=== PATIENT | male | born 1990 | race Caucasian/White ===

== ENCOUNTER 2021-05-31 09:05 | Emergency (ER) | payer BC, SELFPAY ==
--- NOTE | ~2021-05-31 | XR_ITS ---
EXAMINATION: XR knee LT min 4V EXAM DATE: 05/31/2021 09:29 INDICATION: Diffuse left knee pain s/p dog running into same 2 days ago. TECHNIQUE: Left knee frontal, crosstable lateral, orthogonal oblique projections for interpretation. There is no prior study for comparison. FINDINGS: Suspicion of acute closed posttraumatic nondisplaced left knee lateral tibial plateau fract ure. There is moderate-sized left knee joint effusion or lipohemarthrosis. Some soft tissue swelling. No other acute findings. IMPRESSION: Probable acute nondisplaced left lateral tibial plateau fracture; consider orthopedic co nsult, outpatient CT scan without contrast. Reviewed, dictated and finalized at location A. [employer] IMPRESSION: Probable acute nondisplaced left lateral tibial plateau fracture; consider orthopedic consult, outpatient CT scan without contrast.
--- NOTE | 2021-05-31 09:14 | ED.LOWEXIN ---
HPI - Extremity Injury (Lower) General Chief Complaint: Extremity Injury, Lower Stated Complaint: Left Knee Pain Time Seen by Provider: 05/31/21 09:53 Source: patient and RN notes reviewed Mode of arrival: ambulatory Limitations: no limitations History of Present Illness HPI Narrative: 30-year-old male presents concern for pain. Reports 2 days ago his dog ran into his knee causing him to fall on the concrete floor of his garage. Reports significant knee pain and swelling. Reports he has been using crutches. He reports he has been seeing an orthopedic doctor for possible ACL tear in that knee and has recently gotten a cortisone shot approximately 2 weeks ago in the knee. He denies distal swelling, decreased motion, strength. MD complaint: knee injury Related Data Allergies Allergy/AdvReac Type Severity Reaction Status Date / Time No Known Allergies Allergy Unknown Unverified 05/31/21 09:40 Review of Systems Review of Systems: CONSTITUTIONAL: Denies malaise, chills, sweats, or fever. CARDIOVASCULAR: Denies chest pain, palpitations, or edema. RESPIRATORY: Denies cough or dyspnea. SKIN: Denies rash or itching, bruising, redness MUSCULOSKELETAL: Reports left knee pain and swelling NEUROLOGIC: Denies numbness, weakness All systems reviewed & are unremarkable except as noted in HPI and below PMFSH Family History Family History (Updated 05/15/18 @ 11:56 by DOCTOR UNKNOWN) Grandparent Family history of hypercholesterolemia Family history of cardiovascular disease Family history of type 2 diabetes mellitus Mother Family history of hypercholesterolemia Family history of cardiovascular disease Father Carcinoma of colon Social History Social History Smoking status: Smoker, status unknown Alcohol intake: current Comments At time of signature, agree with nursing past medical, surgical, social and family history. There is no relevant family history pertinent to the presenting complaint Exam Narrative: GENERAL: Well-appearing, well-nourished, and in no acute distress. HEAD: Normocephalic, atraumatic. EYES: PERRLA, conjunctivae clear NECK: Supple. CHEST: Speaks in full sentences. No respiratory distress. HEART: Regular rate and rhythm. Normal and equal peripheral pulses. EXTREMITIES: Left knee has normal sensation, limited range of motion. Mild edema, no ecchymosis. Normal sensation with sensitivity to light touch and pain. Anterior tenderness. No open wounds, no skin tenting, no devitalized tissue or atrophy, no trophic changes, no obvious deformity, alignment normal, nearby joints and structures intact. Distal pulses palpable and equal bilaterally, skin warm, dry, pink. Capillary refill less than 3 seconds. SKIN: Warm, dry, no rash. NEURO: Alert and oriented x3. PSYCH: Normal mood and affect Course Course Emergency Course: Patient is aware of diagnosis, understands and agrees to treatment plan. Anticipatory guidance given. Patient agrees to follow-up as directed and is aware of reasons to seek care at the emergency department. Portions of this record may have been created with voice recognition software Vital Signs Vital signs: Vital Signs Temperature 97.6 F 05/31/21 09:16 Pulse Rate 96 05/31/21 09:16 Respiratory Rate 16 05/31/21 09:16 Blood Pressure 124/80 05/31/21 09:16 Pulse Oximetry 99 05/31/21 09:16 Temperature 97.6 F 05/31/21 09:16 Pulse Rate 96 05/31/21 09:16 Respiratory Rate 16 05/31/21 09:16 Blood Pressure 124/80 05/31/21 09:16 Pulse Oximetry 99 05/31/21 09:16 Reviewed. MDM - Extremity Injury (Lower) MDM Narrative Medical decision making narrative: Patients injury and pain is consistent with musculoskeletal etiology. No signs of neurological or vascular compromise on exam. Compartments and tissues are soft without signs of compartment syndrome. Pain is felt appropriate for further evaluation on an outpatient basis. Imaging Data My impression: Images reviewed, int
[2021-05-31 09:16] VITALS: BP 124/80; PULSE 96; RESP 16; TEMP 36.4; O2SAT 99
== END 2021-05-31 10:11 | disposition home or self-care (01) ==
PROVIDERS: Emergency Provider Nurse Practitioner
DX: S82.142A Displaced bicondylar fracture of left tibia, initial encounter for closed fracture (principal); W54.1XXA Struck by dog, initial encounter; M19.90 Unspecified osteoarthritis, unspecified site
CPT/HCPCS: 73564; 99214; G0463

== ENCOUNTER 2024-08-31 14:43 | Outpatient (CLI) | payer BC, SELFPAY ==
--- NOTE | ~2024-08-31 | XR_ITS ---
AP and oblique views of the right ribs, and PA chest radiograph Clinical History: Pain Findings: No rib fracture is seen. Osseous alignment is anatomic. Lungs are clear, without focal cons olidation or pleural effusion. Cardiomediastinal contour is within normal limits. Soft tissues are un remarkable. Impression: No rib fracture is seen. Clear lungs. Reviewed, dictated and finalized at [facility]. Impression: No rib fracture is seen. Clear lungs.
== END 2024-08-31 14:44 | disposition home or self-care (01) ==
PROVIDERS: PCP Emergency Medicine; Visit Provider Family Medicine
DX: R07.81 Pleurodynia (principal)
CPT/HCPCS: 71101

== ENCOUNTER 2024-10-27 13:32 | Outpatient (CLI) | payer BC, SELFPAY ==
--- NOTE | ~2024-10-27 | US_ITS ---
Abdominal Sonogram: Real-time sonographic imaging of the abdomen was performed. Clinical History: Abdominal pain Findings: The liver appears normal with no evidence of bile duct dilatation. 8mm hyperechoic lesion present in the left hepatic lobe. Main portal vein demonstrates normal direction of flow. The spleen is normal in size without evidence of focal lesion. The gallbladder is well distended, and appears n ormal with no evidence of gallstone or wall thickening. The common bile duct measures 3 mm. The visu alized pancreas, aorta, and IVC are unremarkable. The right kidney measures 10.4 cm in length and th e left kidney measures 11.2 cm. There is no hydronephrosis or renal calculus. Impression: 8mm left hepatic lobe hyperechoic mass, most likely small hemangioma. Consider follow-up exam or MR t o attempt to further characterize. Reviewed, dictated and finalized at [facility]. Impression: 8mm left hepatic lobe hyperechoic mass, most likely small hemangioma. Consider follow-up exam or MR to attempt to further characterize.
--- NOTE | ~2024-10-27 | XR_ITS ---
XR abdomen/kub 1V 10/27/2024 13:46 INDICATION: Right lower quadrant pain TECHNIQUE: KUB COMPARISON: None FINDINGS: Bowel gas pattern is normal. There is no evidence of free air, mass, organomegaly, ascites or obstruction. No abnormal calculi are seen. There are pelvic phleboliths. The bones appear intact . IMPRESSION: 1: No acute abdominal abnormality identified. Reviewed, dictated and finalized at location A.
--- NOTE | ~2024-10-27 | XR_ITS ---
AP view of the pelvis Clinical history: Pain Findings: No acute fracture or dislocation is seen. Osseous alignment is anatomic. Bilateral hip and SI joint spaces are preserved. Soft tissues are unremarkable. Impression: No significant abnormality is seen. Reviewed, dictated and finalized at location M. Impression: No significant abnormality is seen.
== END 2024-10-27 13:33 | disposition home or self-care (01) ==
PROVIDERS: PCP Family Medicine; Visit Provider Family Medicine
DX: R10.31 Right lower quadrant pain (principal)
CPT/HCPCS: 72170; 74018; 76700

== ENCOUNTER 2024-12-26 08:15 | Outpatient (CLI) | payer BC, SELFPAY ==
--- NOTE | ~2024-12-26 | MR_ITS ---
MRI of the abdomen: Clinical indication: Liver lesion. Technique: Coronal SSFSE ARC, WATER:coronal LAVA-FLEX, Coronal 2D FIESTA FatSat, Axial SSFSE BH ARC, Axial 3D DualEcho BH, Axial SSFSE-IR, Axial DWI b=500, Axial 2D FIESTA FatSat, pre and dynamic postco ntrast Axial LAVA ARC, postcontrast Coronal In and Opposed phase LAVA FLEX. Following intravenous adm inistration of 13 cc MultiHance gadolinium, T1-weighted fat-sat imaging was performed in the axial an d coronal planes. Findings: Gallbladder is unremarkable. The common bile duct is normal in course and caliber. No filli ng defects are seen within the CBD. No evidence of intrahepatic biliary ductal dilatation. The pancre atic duct is normal in size. There is a 7 mm T2 hyperintense lesion in the inferior left hepatic lobe with progressive fill in/enh ancement over time, most compatible with small hemangioma. Spleen, pancreas, adrenals, kidneys appear normal. The aorta and the paraaortic regions appear normal . Impression: 7 mm left hepatic lobe lesion is most consistent with small hemangioma. Reviewed, dictated and finalized at location . Impression: 7 mm left hepatic lobe lesion is most consistent with small hemangioma.
--- OUTSIDE RECORDS SUMMARY | 2024-12-26 08:21 | XMS_ITS | Data Portability ---
Author Organization [place] [facility], Main Office Address [address] [place] [address] Care Team Providers Care Surveying Crew Rodman Name Role Phone HAYDEN HUGHES Primary Care Provider Assessment Encounter Date Assessment Date Assessment LastModified by Organization Details LastModified Time 09/07/2024 09/07/2024 33 yo M with - WELL ADULT VISIT - BLOOD IN STOOL - HEMORRHOIDS - FH OF COLON CANCER - SMOKER X-ray Rt ribs with chest: 08/31/24. D/w pt about his findings, recent labs & imagines and further plan of care. Will do routine labs. Will refer pt to GI. Meds as directed. Good liquid and fiber intake explained. Diet and exercise explained. Safe sex education given. F/u with GI as per schedule. HM: Flu - Pt declined. Tdap - 09/07/24. Gardasil - Pt declined. F/u in 2-3 weeks. Annual labs in 09/25. [email or web address] Not available 09/07/2024 17:09:15 09/30/2024 09/30/2024 34 yo M with - RLQ PAIN, chronic - ? GERD Vs IBS - VIT D DEFICIENCY - BLOOD IN STOOL - HEMORRHOIDS - FH OF COLON CANCER - SMOKER Annual labs: 09/07/24. X-ray Rt ribs with chest: 08/31/24. D/w pt about his findings, recent labs & imagines and further plan of care. Explained about different options for him. Will do x-ray and US. Meds as directed. Good liquid and fiber intake explained. Diet and exercise explained. Safe sex education given. F/u with GI as per schedule. F/u with Ophtho as per schedule. Educated pt about alarming symptoms to monitor at home. HM: Flu - Pt declined. Tdap - 09/07/24. Gardasil - Pt declined. F/u in 2-4 weeks. Annual labs in 09/25. Not available 09/30/2024 17:12:08 10/21/2024 10/21/2024 34 yo M with - RLQ PAIN, chronic - ? GERD Vs IBS - VIT D DEFICIENCY - BLOOD IN STOOL - HEMORRHOIDS - FH OF COLON CANCER & IBS - SMOKER Annual labs: 09/07/24. X-ray Rt ribs with chest: 08/31/24. D/w pt about his findings, recent labs & imagines and further plan of care. Explained about different options for him. Advised to find out about other GI doctor if he wants to see and call us with their info. Meds as directed. Good liquid and fiber intake explained. Diet and exercise explained. Safe sex education given. F/u with GI as per schedule. F/u with Ophtho as per schedule. Educated pt about alarming symptoms to monitor at home. HM: Flu - Pt declined. Tdap - 09/07/24. Gardasil - Pt declined. F/u in 4 weeks. Annual labs in 09/25. Not available 10/21/2024 16:03:54 11/10/2024 11/10/2024 34 yo M with - LT LIVER LOBE MASS (8 mm) - RLQ PAIN, chronic - ? GERD Vs IBS - VIT D DEFICIENCY - BLOOD IN STOOL - HEMORRHOIDS - FH OF COLON CANCER & IBS - SMOKER US abdo: 10/27/24. X-ray abdo & pelvis: 10/27/24. Annual labs: 09/07/24. X-ray Rt ribs with chest: 08/31/24. D/w pt about his findings, recent labs & imagines and further plan of care. Staff to get US result. Explained about different options for him. Meds as directed. Good liquid and fiber intake explained. Diet and exercise explained. Safe sex education given. F/u with GI at [facility] as per schedule. F/u with Ophtho as per schedule. Educated pt about alarming symptoms to monitor at home. HM: Flu - Pt declined. Tdap - 09/07/24. Gardasil - Pt declined. F/u in 3-4 months. Annual labs in 09/25. US liver in 10/25. [email or web address] Not available 11/10/2024 16:08:46 Plan of Treatment Reminders Order Date Submit Date Provider Last Modified By Organization Details Last Modified Time Details Appointments Procedure 60 2024 08:00A Avril Foote MD Not available Not available Not available Follow Up 15 2024 03:45P Avril Hughes MD Not available Not available Not available Any 2024 02:45P Avril Foote MD Not available Not available Not available Lab vitamin D, 25-hydrox y, total, serum [address] (Lab), [address] [place], [address], 09/14/2024 16:09:58 HbA1c (hemoglob in A1c), blood [address] (Lab), [address] [place], [address], 09/14/2024 16:09:58 CMP, serum or plasma [address] (Lab), [address] [place], [address], 09/07/2024 17:36:38 CBC w/ auto diff 2024 025 SIMRAN [facility] (Lab), [address] [place], [address], 09/08/2024 14:05:33 lipid panel, blood [address] (Lab), [address] [place], [address], 09/16/2024 11:10:18 TSH, serum, reflex free T4 [address] (Lab), [address] [place], [address], 09/14/2024 16:09:58 PSA, serum or plasma [address] (Lab), [address] [place], [address], 09/14/2024 16:09:58 urinalysi s complete, reflex culture [address] (Lab), [address] [place], [address], 09/07/2024 17:37:51 Referral gastroent erologist referral - Blood in stool, FH of colon cancer ++ Please call patient to schedule an appointme nt. Thank you. 2024 025 SIMRAN Foote MD, [address] [facility], [address], [place], [address], 11/29/2024 14:30:36 Procedures upper endoscopy procedure (EGD) (PROC) [address] (Pre-Screen), [address] [place], [address], 12/02/2024 09:19:56 colonosco py procedure (PROC) 2024 025 [facility] (Pre-Screen), [address] [place], [address], 12/23/2024 04:18:41 Surgeries None recorded. Imaging MRI, abdomen, w/wo contrast 2024 025 [facility], [facility] [address], [address], 12/18/2024 04:06:29 XR, abdomen + pelvis 2024 025 [facility], [facility] [address], [address], 10/28/2024 09:34:18 US, abdomen, complete 2024 [facility], [address], [place], [address], 10/28/2024 11:08:07 Medication Orders ergocalci ferol (vitamin D2) 1,250 mcg (50,000 unit) capsule 2024 [facility], [address], [place], [place], [id number], 11/10/2024 15:14:56 pantopraz ole 40 mg tablet,de layed release 2024 [facility], [address], [place], [place], [id number], 11/10/2024 15:14:57 varenicli ne tartrate 1 mg tablet 2024 [facility], [address], [place], [place], [id number], 11/10/2024 15:14:55 ergocalci ferol (vitamin D2) 1,250 mcg (50,000 unit) capsule 2024 025 [facility], [address], [place], [place], [id number], 10/21/2024 15:49:22 pantopraz ole 40 mg tablet,de layed release 2024 [facility], [address], [place], [place], [id number], 10/21/2024 15:51:32 varenicli ne tartrate 0.5 mg (11)-1 mg (42) tablets in a dose pack 2024 [facility], [address], [place], [place], [id number], 10/21/2024 15:51:28 ergocalci ferol (vitamin D2) 1,250 mcg (50,000 unit) capsule 2024 025 [facility]65747, [address], [place], [place], [id number], 09/30/2024 17:01:05 famotidin e 20 mg tablet 2024 025 [facility] #63959, [address], [place], [place], [id number], 09/30/2024 17:04:03 Patient TargetsNo targets recorded. Patient Instructions Encounter Date Encounter Id Patient Instructions Last Modified By Organization Details Last Modified Time 11/25/2024 [id number] I discussed with the patient detail advised the patient that he can try MiraLax every day to have 1 or 2 bowel movements possibility of constipation as a culprit for his abdominal pains as well as rectal bleeding secondary to hemorrhoids have been discussed. We will advise patient to proceed with a colonoscopy for evaluation because of the family history of inflammatory bowel disease, family history of colon cancer. Necessity of ruling out colon cancer has been discussed in detail with the patient. I will also proceed with the upper endoscopy to rule out any hiatal hernia or Piper's esophagus. Patient agrees to get both tests done. Regarding the liver lesion noted on the ultrasound we will order the MRI unfortunately we do not have the MRI variability at this point at the hospital we will send the patient to the closest hospital to get the MRI done for the lesion noted on the ultrasound. Follow with us in 4 months Not available 11/25/2024 14:58:23 Reason for Referral Personnel Training Officer Referral for Blood-tinged feces Blood in stool, FH of colon cancer ++ Blood in stool, FH of colon cancer ++ Please call patient to schedule an appointment. Thank you. Referring Physician: Hayden Hughes, Family Medicine, Encounter Date: 09/07/2024 Results Created Date Observation Date Name Description Value Unit Range Abnormal Flag Note LastModifiedBy Organization Detail LastModifiedTime 09/08/1909/08/2024 CBC/C OMPLE TE BLD COUNT W/DIF F white blood cells 7.7 x10'3 /uL 4.2-10 .8 Not Available [facility] (Lab) [address] [place], [address], 09/08/2024 14:05:33 09/08/19 25 09/08/2024 CBC/C OMPLE TE BLD COUNT W/DIF F red blood cells 4.64 x10'6 /uL 4.10-5 .80 Not Available [facility] (Lab) [address] [facility] [place], [address], 09/08/2024 14:05:33 09/08/19 25 09/08/2024 CBC/C OMPLE TE BLD COUNT W/DIF F hemoglobin 15.0 g/dL 13.2-1 7.0 Not Available [facility] (Lab) [address] [place], [address], 09/08/2024 14:05:33 09/08/19 25 09/08/2024 CBC/C OMPLE TE BLD COUNT W/DIF F hematocrit 43.9 % 39.3-5 0.0 Not Available [facility] (Lab) [address] [place], [address], 09/08/2024 14:05:33 09/08/1909/08/2024 CBC/C OMPLE TE BLD COUNT W/DIF F mean red cell volume 94.6 fL 80.0-9 7.0 Not Available [facility] (Lab) [address] [place], [address], 09/08/2024 14:05:33 09/08/19 25 09/08/2024 CBC/C OMPLE TE BLD COUNT W/DIF F mean red cell hemoglobin 32.3 pg 27.0-3 3.0 Not Available [facility] (Lab) [address] [place], [address], 09/08/2024 14:05:33 09/08/19 25 09/08/2024 CBC/C OMPLE TE BLD COUNT W/DIF F mean RBC HGB concentratio n 34.2 g/dL 31.0-3 6.0 Not Available [facility] (Lab) [address] [place], [address], 09/08/2024 14:05:33 09/08/19 25 09/08/2024 CBC/C OMPLE TE BLD COUNT W/DIF F red cell distribution width 12.1 % 11.8-1 5.5 Not Available [facility] (Lab) [address] [place], [address], 09/08/2024 14:05:33 09/08/19 25 09/08/2024 CBC/C OMPLE TE BLD COUNT W/DIF F platelets 254 x10'3 /uL 150-40 0 Not Available [facility] (Lab) [address] [place], [address], 09/08/2024 14:05:33 09/08/1909/08/2024 CBC/C OMPLE TE BLD COUNT W/DIF F mean platelet volume 11.0 fL 9.0-12 .4 Not Available [facility] (Lab) [address] [place], [address], 09/08/2024 14:05:33 09/08/19 25 09/08/2024 CBC/C OMPLE TE BLD COUNT W/DIF F neutrophils 56.2 % 39.0-7 2.0 Not Available [facility] (Lab) [address] [place], [address], 09/08/2024 14:05:33 09/08/19 25 09/08/2024 CBC/C OMPLE TE BLD COUNT W/DIF F lymphocytes 31.4 % 16.0-4 7.0 Not Available [facility] (Lab) [address] [place], [address], 09/08/2024 14:05:33 09/08/1909/08/2024 CBC/C OMPLE TE BLD COUNT W/DIF F monocytes 10.3 % 5.0-12 .0 Not Available [facility] (Lab) [address] [place], [address], 09/08/2024 14:05:33 09/08/1909/08/2024 CBC/C OMPLE TE BLD COUNT W/DIF F eosinophils 1.3 % 1.0-7. 0 Not Available [facility] (Lab) [address] [place], [address], 09/08/2024 14:05:33 09/08/1909/08/2024 CBC/C OMPLE TE BLD COUNT W/DIF F basophils 0.5 % 0.0-2. 0 Not Available [facility] (Lab) [address] [place], [address], 09/08/2024 14:05:33 09/08/1909/08/2024 CBC/C OMPLE TE BLD COUNT W/DIF F immature granulocytes 0.3 % 0.00-0 .50 Not Available [facility] (Lab) [address] [place], [address], 09/08/2024 14:05:33 09/08/1909/08/2024 CBC/C OMPLE TE BLD COUNT W/DIF F neutrophils, absolute count 4.34 x10'3 /uL 1.5-8. 0 Not Available [facility] (Lab) [address] [place], [address], 09/08/2024 14:05:33 09/08/19 25 09/08/2024 CBC/C OMPLE TE BLD COUNT W/DIF F lymphocytes, absolute count 2.43 x10'3 /uL 1.07-3 .43 Not Available [facility] (Lab) [address] [place], [address], 09/08/2024 14:05:33 09/08/1909/08/2024 CBC/C OMPLE TE BLD COUNT W/DIF F monocytes, absolute count 0.80 x10'3 /uL 0.29-0 .99 Not Available [facility] (Lab) [address] [place], [address], 09/08/2024 14:05:33 09/08/19 25 09/08/2024 CBC/C OMPLE TE BLD COUNT W/DIF F eosinophils, absolute count 0.10 x10'3 /uL 0.02-0 .53 Not Available [facility] (Lab) [address] [place], [address], 09/08/2024 14:05:33 09/08/1909/08/2024 CBC/C OMPLE TE BLD COUNT W/DIF F basophils, absolute count 0.04 x10'3 /uL 0.01-0 .08 Not Available [facility] (Lab) [address] [place], [address], 09/08/2024 14:05:33 09/08/1909/08/2024 CBC/C OMPLE TE BLD COUNT W/DIF F immature granulocytes ,absolute 0.02 x10'3 /uL 0.00-0 .05 Not Available [facility] (Lab) [address] [place], [address], 09/08/2024 14:05:33 09/08/19 25 09/08/2024 CBC/C OMPLE TE BLD COUNT W/DIF F nucleated red blood cells 0.0 % -0 Not Available [facility] (Lab) [address] [place], [address], 09/08/2024 14:05:33 04/08/20 25 09/08/2024 CBC/C OMPLE TE BLD COUNT W/DIF F NRBC# 0.00 x10'3 /uL Not Available [facility] (Lab) [address] [place], [address], 09/08/2024 14:05:33 09/08/19 25 09/08/2024 COMPR EHENS KM METAB OLIC PANEL sodium 137 mmol/ L 137-14 5 Not Available [facility] (Lab) [address] [place], [address], 09/08/2024 14:21:02 09/08/19 25 09/08/2024 COMPR EHENS KM METAB OLIC PANEL potassium 3.9 mmol/ L 3.5-5. 1 Not Available [facility] (Lab) [address] [place], [address], 09/08/2024 14:21:02 09/08/19 25 09/08/2024 COMPR EHENS KM METAB OLIC PANEL chloride 106 mmol/ L 98-107 Not Available [facility] (Lab) [address] [place], [address], 09/08/2024 14:21:02 09/08/19 25 09/08/2024 COMPR EHENS KM METAB OLIC PANEL carbon dioxide 23 mmol/ L 22-30 Not Available [facility] (Lab) [address] [place], [address], 09/08/2024 14:21:02 09/08/19 25 09/08/2024 COMPR EHENS KM METAB OLIC PANEL anion gap 11.9 mmol/ L 14-22 low Not Available [facility] (Lab) [address] [place], [address], 09/08/2024 14:21:02 09/08/19 25 09/08/2024 COMPR EHENS KM METAB OLIC PANEL glucose 83 mg/dL 70-99 Not Available [facility] (Lab) [address] [place], [address], 09/08/2024 14:21:02 09/08/19 25 09/08/2024 COMPR EHENS KM METAB OLIC PANEL BUN 8 mg/dL 8-19 Not Available [facility] (Lab) [address] [place], [address], 09/08/2024 14:21:02 09/08/19 25 09/08/2024 COMPR EHENS KM METAB OLIC PANEL creatinine 0.82 mg/dL 0.66-1 .25 Not Available [facility] (Lab) [address], [place], [address], 09/08/2024 14:21:02 09/08/19 25 09/08/2024 COMPR EHENS KM METAB OLIC PANEL GFR >60 Refer ence Range : [place] ge GFR Healt hy Adult : >60 mL/mi n/1.7 3 m2 Chron ic Kidne y Disea se: 15-60 mL/mi n/1.7 3 m2 Kidne y Failu re: <15/m L/min /1.73 m2 www.n iddk. nih.g ov The MDRD study equat ion has not been valid ated in child waleska <18 years of age; pregn ant women ; the elder ly >85 years of age; or in some racia l or ethni c subgr oups, such as [facility] nics. Outsi de the valid ated kalee eters , estim ated GFR is less accur ate, requi ring clini louis judgm ent on a case- by-ca se basis . Clini louis inter preta tion for other races and ages must be made by the clini juan. The MDRD study equat ion has not been valid ated for the evalu ation of serum creat inine relat ed to nutri angel l statu s or medic ation usage . For perso ns <18 years of age, a pedia tric GFR calcu lator is avail able on the [facility] websi te: https ://kasandra w.ronnie laguna.o rg/pr ofess ional s/kdo qi/gf r_cal culat or Not Available [facility] (Lab) [address] [place], [address], 09/08/2024 14:21:02 09/08/19 25 09/08/2024 COMPR EHENS KM METAB OLIC PANEL alkaline phosphatase 81 U/L 38-126 Not Available [facility] (Lab) [address] [place], [address], 09/08/2024 14:21:02 09/08/19 25 09/08/2024 COMPR EHENS KM METAB OLIC PANEL alanine aminotransfe rase 23 U/L 0-50 Not Available [facility] (Lab) [address] [place], [address], 09/08/2024 14:21:02 09/08/19 25 09/08/2024 COMPR EHENS KM METAB OLIC PANEL aspartate aminotransfe rase 25 U/L 15-46 Not Available [facility] (Lab) [address] [place], [address], 09/08/2024 14:21:02 09/08/19 25 09/08/2024 COMPR EHENS KM METAB OLIC PANEL bilirubin, total 0.90 mg/dL 0.20-1 .30 Not Available [facility] (Lab) [address] [place], [address], 09/08/2024 14:21:02 09/08/1909/08/2024 COMPR EHENS KM METAB OLIC PANEL calcium 9.7 mg/dL 8.4-10 .2 Not Available [facility] (Lab) [address] [place], [address], 09/08/2024 14:21:02 09/08/19 25 09/08/2024 COMPR EHENS KM METAB OLIC PANEL total protein 7.4 g/dL 6.3-8. 2 Not Available [facility] (Lab) [address] [place], [address], 09/08/2024 14:21:02 09/08/19 25 09/08/2024 COMPR EHENS KM METAB OLIC PANEL albumin 4.8 g/dL 3.4-5. 0 Not Available [facility] (Lab) [address] [place], [address], 09/08/2024 14:21:02 09/08/19 25 09/08/2024 COMPR EHENS KM METAB OLIC PANEL globulin 2.6 g/dL 2.6-4. 2 Not Available [facility] (Lab) [address] [place], [address], 09/08/2024 14:21:02 09/08/19 25 09/08/2024 COMPR EHENS KM METAB OLIC PANEL A/G ratio 1.8 ratio 1.0-2. 0 Not Available [facility] (Lab) [address] [place], [address], 09/08/2024 14:21:09/08/1909/08/2024 LIPID PANEL cholesterol 176 mg/dL 140-19 9 NIH KAREN NSUS RECOM MENDA TION FOR BRENDAN STERO L: ADULT CHILD LOW RISK: <200 <170 BORDE RLINE : <200- 239 ----- HIGH RISK: >240 >200 Not Available [facility] (Lab) [address] [place], [address], 09/08/2024 14:21:06 09/08/1909/08/2024 LIPID PANEL triglyceride s 57 mg/dL 0-150 NIH KAREN NSUS REPOR T RECOM MENDA TION FOR TRIGL YCERI BRENTON: ADULT CHILD LOW RISK: <150 ----- BODER LINE: 150-1 99 ----- HIGH RISK: >200 ----- Not Available [facility] (Lab) [address] [place], [address], 09/08/2024 14:21:06 09/08/19 25 09/08/2024 LIPID PANEL HDL cholesterol 42 mg/dL 40- Not Available [facility] (Lab) [address] [place], [address], 09/08/2024 14:21:06 09/08/19 25 09/08/2024 LIPID PANEL LDL cholesterol, calculated 123 mg/dL 0-130 NIH KAREN NSUS REPOR T RECOM MENDA TIONS FOR LDL: ADULT CHILD LOW RISK <130 <110 (OPTI MAL LDL) <100 ----- BORDE RLINE : 130-1 59 ----- HIGH RISK: >160 >130 A TRIGL YCERI DE RESUL T >400 INVAL IDATE S THE CALCU LATIO N FOR LDL FRACT IONAT ION - THE LDL RESUL T WILL NOT BE REPOR THERON. Not Available [facility] (Lab) [address] [place], [address], 09/08/2024 14:21:06 09/08/19 25 09/08/2024 URINA LYSIS COMPL ETE/I RIS W/RFX color YELLOW Not Available [facility] (Lab) [address] [place], [address], 09/08/2024 14:24:43 09/08/19 25 09/08/2024 URINA LYSIS COMPL ETE/I RIS W/RFX appear CLEAR Not Available [facility] (Lab) [address] [place], [address], 09/08/2024 14:24:43 09/08/19 25 09/08/2024 URINA LYSIS COMPL ETE/I RIS W/RFX specific gravity 1.026 1.001- 1.030 Not Available [facility] (Lab) [address] [place], [address], 09/08/2024 14:24:43 09/08/19 25 09/08/2024 URINA LYSIS COMPL ETE/I RIS W/RFX pH 7.0 pH_un its 5.0-9. 0 Not Available [facility] (Lab) [address] [place], [address], 09/08/2024 14:24:43 09/08/19 25 09/08/2024 URINA LYSIS COMPL ETE/I RIS W/RFX leukocytes NEGATI VE zhang/u L negati ve- Not Available [facility] (Lab) [address] [place], [address], 09/08/2024 14:24:43 09/08/19 25 09/08/2024 URINA LYSIS COMPL ETE/I RIS W/RFX nitrite NEGATI VE negati ve- Not Available [facility] (Lab) [address] [place], [address], 09/08/2024 14:24:43 09/08/19 25 09/08/2024 URINA LYSIS COMPL ETE/I RIS W/RFX protein 10 mg/dL negati ve- abnormal Not Available [facility] (Lab) [address] [place], [address], 09/08/2024 14:24:43 09/08/19 25 09/08/2024 URINA LYSIS COMPL ETE/I RIS W/RFX glucose NORMAL mg/dL normal - Not Available [facility] (Lab) [address] [place], [address], 09/08/2024 14:24:43 09/08/19 25 09/08/2024 URINA LYSIS COMPL ETE/I RIS W/RFX ketones NEGATI VE mg/dL negati ve- Not Available [facility] (Lab) [address] [place], [address], 09/08/2024 14:24:43 09/08/19 25 09/08/2024 URINA LYSIS COMPL ETE/I RIS W/RFX urobilinogen NORMAL mg/dL normal - Not Available [facility] (Lab) [address] [place], [address], 09/08/2024 14:24:43 09/08/19 25 09/08/2024 URINA LYSIS COMPL ETE/I RIS W/RFX bilirubin NEGATI VE mg/dL negati ve- Not Available [facility] (Lab) [address] [place], [address], 09/08/2024 14:24:43 09/08/19 25 09/08/2024 URINA LYSIS COMPL ETE/I RIS W/RFX blood NEGATI VE mg/dL negati ve- Not Available [facility] (Lab) [address] [place], [address], 09/08/2024 14:24:43 09/08/19 25 09/08/2024 URINA LYSIS COMPL ETE/I RIS W/RFX white blood cells 0-8 /i??h pfi?? 0-8 Not Available [facility] (Lab) [address] [place], [address], 09/08/2024 14:24:43 09/08/19 25 09/08/2024 URINA LYSIS COMPL ETE/I RIS W/RFX red blood cells 0-4 /i??h pfi?? 0-4 Not Available [facility] (Lab) [address] [place], [address], 09/08/2024 14:24:43 09/08/19 25 09/08/2024 URINA LYSIS COMPL ETE/I RIS W/RFX bacteria NONE Not Available [facility] (Lab) [address] [place], [address], 09/08/2024 14:24:43 09/08/19 25 09/08/2024 URINA LYSIS COMPL ETE/I RIS W/RFX mucous MANY /i??l pfi?? abnormal Not Available [facility] (Lab) [address] [place], [address], 09/08/2024 14:24:43 09/08/19 25 09/08/2024 URINA LYSIS COMPL ETE/I RIS W/RFX squamous epithelial NONE /i??l pfi?? abnormal Not Available [facility] (Lab) [address] [place], [address], 09/08/2024 14:24:43 09/08/19 25 09/08/2024 HEMOG LOBIN A1C HA1C 4.9 % 4.0-6. 0 Diabe sofia Scree nabila Crite matilde: <5.7% Consi stent with absen ce of diabe sofia 5.7-6 .4% Consi stent with incre ased risk for diabe sofia (pred iabet es) >OR=6 .5% Consi stent with diabe sofia REFER ENCE: Diabe sofia Care 2016, 39(Hull ppl.1 ):s13 -s22 Not Available [facility] (Lab) [address] [place], [address], 09/08/2024 14:38:34 09/08/19 25 09/08/2024 VITAM IN D 25-HY DROXY vd25oh 16.8 NG/mL 30-100 low Vitam in D Statu s: Defic ient: <20 ng/mL Insuf ficie nt: 20-29 ng/mL Suffi cient : 30-10 0 ng/mL Not Available [facility] (Lab) [address] [place], [address], 09/08/2024 14:42:46 09/08/19 25 09/08/2024 TSH W/REF MARICRUZ FT4 TSH with reflex free T4 2.540 uIU/m L 0.465- 4.680 Not Available [facility] (Lab) [address] [place], [address], 09/08/2024 14:58:40 09/08/19 25 09/08/2024 PSA SCREE N PSA medicare screen 0.73 NG/mL 0.00-4 .00 Not Available [facility] (Lab) [address], [place], [address], 09/08/2024 14:58:46 09/02/1908/31/2024 XR, ribs, unila teral , w/ PA chest No observ ation record ed. [address], [place], [address], 09/07/2024 16:55:23 10/28/19 25 10/27/2024 XR, abdom en + pelvi s No observ ation record ed. [address], [place], [address], 11/10/2024 15:15:58 10/29/19 25 10/27/2024 XR, abdom en + pelvi s No observ ation record ed. [address] [facility], [place], [address], 11/10/2024 15:15:44 11/11/19 25 10/27/2024 US, abdom en, compl ete No observ ation record ed. [email or web address] [address] [facility], [place], [address], 12/02/2024 11:40:56 Result Notes None recorded. Problems Name Problem SNOMED Code Status Onset Date Resolution Date Notes Provider Name and Address Organization Details Recorded Time Hemorrhoids 78224301 Active 2024 Hayden Hughes MD [address], [place], [address], [place] [employer] 17:18:58 Rib pain 206123671 Active 2024 Hayden Hughes MD [address], [place], [address], [facility] [employer] 5 17:21:06 Cigarette smoker 57326639 Active 2024 Hayden Hughes MD [address], [place], [address], [place] [facility] 5 17:24:38 Blood-tinge d feces 5350963489952 02 Active 2024 Hayden Hughes MD [address], [place], [address], [place] [facility] 5 16:58:57 Family history of cancer of colon 358719667 Active 2024 Hayden Hughes MD [address], [address], [place], [address], [place] [facility] 5 17:09:43 Vitamin D deficiency 81443701 Active 2024 Hayden Hughes MD [address], [address], [place], [address], [place] [facility] 5 14:53:21 Periumbilic al pain 172057076 Active 2024 Hayden Hughes MD [address], [address], [place], [address], [place] [facility] 5 17:01:36 Right lower quadrant pain 953561536 Active 2024 Hayden Hughes MD [address], [address], [place], [address], [employer] [facility] 5 17:02:04 Gastroesoph ageal reflux disease without esophagitis 267139023 Active 2024 Antonette Foote MD [address], [address], [place], [address], [place] [facility] 5 14:56:15 Lesion of liver 277795195 Active 2024 Antonette Foote MD [address], [address], [place], [address], [place] [facility] 5 14:55:33 Rectal hemorrhage 57289788 Active 2024 Antonette Foote MD [address], [place], [address], [facility] 14:55:38 Moderate gastric reflux 780339050 Active 2024 Antonette Foote MD [address] [facility], [facility] [address], [place], [address], [facility] 14:55:47 Right upper quadrant pain 685345575 Active 2024 Antonette Foote MD [address] [facility], [facility] [address], [place], [address], [facility] 14:55:59 Problem Notes Documentation Provider Name and Address Organization Details Recorded Time Personnel Training Officer Consult Note : [facility] [address] [facility] [address], [facility] [address]XFIWCNR, Michael (id #[id number], : 1990) [facility] [address] [facility] [address] [place] [address] Encounter Summary - Progress Note Date Printed: 11/29/2024 Documents sent via fax will include the followingmessage: This fax may contain sensitive and confidential personal health information that is being sent for the sole use of the intended recipient. Unintended recipients are directed to securely destroy any materials received. You are hereby notified that the unauthorized disclosure or other unlawful use of this fax or any personal health information is prohibited. To the extent patient information contained in this fax is subject to 42 CFR Part 2, this regulation prohibits unauthorized disclosure of these records. If you received this fax in error, please visit [email or web address] to notify the sender and confirm that the information will be destroyed. If you do not have internet access, please call to notify the sender and confirm that the information will be destroyed. Thank you for your attention and cooperation. [ID:[id number]] Patient Carlin Casarez (34yo, M) #[id number] 1990 Patient Demographics: Address [address] [place] [address] Work Phone Encounter Notes: Encounter Reason/Date blood in stool 11/25/2024 - 02:00PM - [facility] General Surgery History of Present Illnesspatient is seen 1st time in the office patient is here because of rectal bleeding according to him he has problem with the hemorrhoids for a long time but recently in June he started having more rectal bleeding according to him his grandmother had colon cancer denies any previous colonoscopies also according to him ulcerative colitis and Crohn's runs in the family. Patient also complains of some lower abdominal discomfort off and on but it gets better once he has a bowel movement. Also complains of acid reflux according to him he started the pantoprazole and is feeling better denies any dysphagia denies any previous upper endoscopies. Patient did have an ultrasound done in the hospital which showed 8 mm focus in the liver which was concerning for possible hemangioma an MRI was recommended patient has not gone for the MRI yet. Review of Systems Patient reports no fever and no night sweats. He reports no chest pain, no palpitations, and no known heart murmur. He reports no excessive bleeding. He reports not currently and not currently nursing. He reports no runny nose, no sinus pressure, no itching, no hives, and no frequent sneezing. He reports no history of Accutane (isotretinoin) use in the last 6 months. He reports not currently smoking. He reports no abdominal pain, no vomiting, normal appetite, no diarrhea, not vomiting blood, no dyspepsia, and no GERD. [id number] 13:42 Ht: 5 ft 7 in (170.18 cm) Wt: 146 lbs (66.22 kg) BMI: 22.9 BP: 122/72 Pulse: 82 bpm O2Sat: 99% Results/Interpretations Physical ExamConstitutional:General Appearance: healthy-appearing, well-nourished, and well-developed. Level of Distress: NAD. Ambulation: ambulating normally. Psychiatric:Insight: good judgement. Mental Status: normal mood and affect and active and alert. Orientation: to time, place, and person. Memory: recent memory normal and remote memory normal. Head:Head: normocephalic and atraumatic. Eyes:Lids and Conjunctivae: no discharge or pallor and non-injected. Pupils: PERRLA. Corneas: grossly intact. Fundoscopic: normal vessels and optic discs, no exudates or hemorrhages, and grossly normal except where noted. EOM: EOMI. Lens: clear. Sclerae: non-icteric. Vision: peripheral vision grossly intact and acuity grossly intact. ENMT:Ears: no lesions on external ear, EACs clear, TMs clear, and TM mobility normal. Hearing: no hearing loss and Rinne AC>BC. Nose: no polyp, lesions on external nose, septal deviation, sinus tenderness, or nasal discharge and nares patent and nasal passages clear. Lips, Teeth, and Gums: no mouth or lip ulcers or bleeding gums and normal dentition. Oropharynx: no erythema or exudates and moist mucous membranes and tonsils not enlarged. Neck:Neck: supple, FROM, trachea midline, and no masses. Lymph Nodes: no cervical LAD, supraclavicular LAD, axillary LAD, or inguinal LAD. Thyroid: no enlargement or nodules and non-tender. Lungs:Respiratory effort: no dyspnea. Percussion: no dullness, flatness, or hyperresonance. Auscultation: no wheezing, rales/crackles, or rhonchi and breath sounds normal, good air movement, and CTA except as noted. Chest Deformity no pectus carinatum or excavatum; no thoracic deformity, left sternal bulge, or barrel chest; and normal-spaced nipples. Cardiovascular:Apical Impulse: not displaced. Heart Auscultation: normal S1 and S2; no murmurs, rubs, or gallops; and RRR. Neck vessels: no carotid bruits. Pulses including femoral / pedal: normal throughout. Abdomen:Bowel Sounds: normal. Inspection and Palpation: no tenderness, guarding, masses, rebound tenderness, or CVA tenderness and soft and non-distended. Liver: non-tender and no hepatomegaly. Spleen: non-tender and no splenomegaly. Hernia: none palpable. Male :Penis: no lesions or discharge. Scrotum: no swelling or tenderness. Testes: palpable bilaterally and not enlarged. Rectal:Anus, Perineum, Rectum: no hemorrhoids, fissures, or masses and normal tone and stool heme negative. Prostate non-tender, not enlarged, and smooth / no nodules. Musculoskeletal::Motor Strength and Tone: normal and normal tone. Joints, Bones, and Muscles: no contractures, malalignment, tenderness, or bony abnormalities and normal movement of all extremities. Extremities: no cyanosis, edema, varicosities, or palpable cord. Neurologic:Gait and Station: normal gait and station. Cranial Nerves: grossly intact. Sensation: grossly intact. Reflexes: DTRs 2+ bilaterally throughout. Coordination and Cerebellum: [id number]-[id number] intact and no tremor. Motor Strength normal right, left, right facial, and left facial. Skin:Inspection and palpation: no rash, lesions, ulcer, induration, nodules, jaundice, or abnormal nevi and good turgor and (normal) clubbing. Nails: normal. Back:Thoracolumbar Appearance: normal curvature. Assessment and Plan1.Liver ejfgjtK38.9: Liver disease, unspecified MRI, ABDOMEN, W/WO CONTRAST Height (ft.): 5 ft 7 in Weight (lbs): 146 2.Rectal qxjhkztxR06.5: Hemorrhage of anus and rectum COLONOSCOPY PROCEDURE (PROC) 3.Moderate gastroesophageal otykvpI36.9: Gastro-esophageal reflux disease without esophagitis 4.Abdominal discomfort in right upper gpneelviI95.11: Right upper quadrant pain 5.Gastroesophageal reflux disease without vakemfrtfqnP69.9: Gastro-esophageal reflux disease without esophagitis UPPER ENDOSCOPY PROCEDURE (EGD) (PROC) Discussion NotesI discussed with the patient detail advised the patient that he can try MiraLax every day to have 1 or 2 bowel movements possibility of constipation as a culprit for his abdominal pains as well as rectal bleeding secondary to hemorrhoids have been discussed. We will advise patient to proceed with a colonoscopy for evaluation because of the family history of inflammatory bowel disease, family history of colon cancer. Necessity of ruling out colon cancer has been discussed in detail with the patient. I will also proceed with the upper endoscopy to rule out any hiatal hernia or Piper's esophagus. Patient agrees to get both tests done. Regarding the liver lesion noted on the ultrasound we will order the MRI unfortunately we do not have the MRI variability at this point at the hospital we will send the patient to the closest hospital to get the MRI done for the lesion noted on the ultrasound. Follow with us in 4 months Return to Office Hayden Hughes MD for Follow Up 15 at [facility] on 02/09/2025 at 03:45 PM to see Hayden Hughes MD for Physical/Annual Wellness 30 at [facility] on or around 09/07/2025 Patient Medical History: Allergies List Reviewed Allergies NKDA Medications Reviewed Medications NameDate Source ergocalciferol (vitamin D2) 1,250 mcg (50,000 unit) capsuleTAKE 1 CAPSULE BY MOUTH EVERY WEEK NRAKDAWV34/13/25 filled surescripts famotidine 20 mg tabletTake 1 tablet(s) twice a day by oral route as directed for 90 days.09/30/24 prescribed Hayden Hughes MD hydrocortisone 2.5 % topical cream with perineal applicatorAPPLY THIN LAYER TOPICALLY TO THE AFFECTED AREA 2 TO 4 TIMES DAILY08/17/24 filled surescripts pantoprazole 40 mg tablet,delayed releaseTAKE 1 TABLET BY MOUTH EVERY DAY IN THE IIKMDSZ98/13/25 filled surescripts varenicline tartrate 0.5 mg (11)-1 mg (42) tablets in a dose packTAKE 1 PACK BY MOUTH TWICE DAILY DIRECTED FOR 30 DAYS10/21/24 filled surescripts varenicline tartrate 1 mg tabletTAKE 1 TABLET BY MOUTH TWICE DAILY GCVJLVSB77/11/25 filled surescripts Family HistoryReviewed Family History Unspecified Relation - Malignant tumor of colon ( age: 93) - Grandparent unknown thinking Mom's side Father - Crohn's disease (onset age: 45) - Ulcerative colitis (onset age: 45) - Polyp of colon (onset age: 42) Mother - Irritable bowel syndrome (onset age: 65) - Myocardial infarction (onset age: 40) Brother - Polyp of colon (onset age: 33) Maternal Grandfather - Diabetes mellitus ( age: 93) - Pneumonia (onset age: 30) ( age: 93) Past Medical HistoryReviewed Past Medical History Vaccine HistoryReviewed Vaccines Vaccine Type Date Amt. Route Site [facility] Lot # Mfr. Exp. Date VIS VIS Given [employer] Diphtheria, Tetanus, Pertussis Tdap 09/07/24 0.5 mL Intramuscular Deltoid, Left [id number] [employer] 08/18/26 Tdap 07/02/2024 09/07/24 Maryanne Hurt RN Electronically Signed by: ANTONETTE FOOTE MD Hayden Hughes MD [address], [address], [place], [address], [employer] 11/29/2024 14:32:12 Procedures Surgical History Date Name Laterality Status Provider Name and Address Organization Details Recorded Time 5 Smoking Cessation completed Hayden Hughes MD [address], [address], [place], [address], [employer] 08/17/2024 17:35:29 6 extraction of wisdom tooth completed Maryanne Hurt RN [employer] 08/17/2024 17:15:58 Imaging Results None recorded. Procedure Notes None recorded. Medical Equipment None Reported. Allergies No known drug allergies Medications Name Sig Start Date Stop Date Status Note LastModified by Organization Details LastModified Time azithromyci n 250 mg tablet TAKE 2 TABLETS (500 MG) BY ORAL ROUTE ONCE DAILY FOR 1 DAY THEN 1 TABLET (250 MG) BY ORAL ROUTE ONCE DAILY FOR 4 DAYS 09/07 completed Not Available Not Available Not Available hydrocortis one 2.5 % topical cream with perineal applicator APPLY THIN LAYER TOPICALLY TO THE AFFECTED AREA 2 TO 4 TIMES DAILY active Not Available Not Available No t Available famotidine 20 mg tablet Take 1 tablet twice a day by oral route as directed for 90 days. 2024 active Not Available Not Available Not Avai lable pantoprazol e 40 mg tablet,arash yed release TAKE 1 TABLET BY MOUTH EVERY DAY IN THE MORNING active Not Available Not Available No t Available ergocalcife rol (vitamin D2) 1,250 mcg (50,000 unit) capsule TAKE 1 CAPSULE BY MOUTH EVERY WEEK DIRECTED active Not Available Not Available No t Available methylpredn isolone 4 mg tablets in a dose pack FOLLOW PACKAGE DIRECTION S 09/07 completed Not Available Not Available Not Available varenicline tartrate 1 mg tablet TAKE 1 TABLET BY MOUTH TWICE DAILY DIRECTED active Not Available Not Available No t Available varenicline tartrate 0.5 mg (11)-1 mg (42) tablets in a dose pack TAKE 1 PACK BY MOUTH TWICE DAILY DIRECTED FOR 30 DAYS active Not Available Not Available No t Available Golytely 236 gram-22.74 gram-6.74 gram-5.86 gram oral solution as directed 2024 active Not Available Not Available Not Avai lable Vitals Date Recorded Body height Body mass index (BMI) Body weight Body temperature Oxygen saturation Oxygen saturation in Arterial blood by Pulse oximetry Heart rate Systolic And Diastolic Provider Name and Address Organization Details Last Updated DateTime 5 170.18 cm 22.6 kg/m2 42065.3 5 g 98.1 [degF] 96 % 96 % 81 /min 120/80 mm[Hg] Maryanne Hurt RN [facility] [employer] [facility] 5 16:52:11 Date Recorded Body height Body mass index (BMI) Body weight Body temperature Oxygen saturation Oxygen saturation in Arterial blood by Pulse oximetry Heart rate Systolic And Diastolic Provider Name and Address Organization Details Last Updated DateTime 5 170.18 cm 22.6 kg/m2 98535.4 5 g 97.9 [degF] 96 % 96 % 79 /min 120/82 mm[Hg] Maryanne Hurt RN [facility] [employer] [facility] 5 16:57:29 Date Recorded Body height Body mass index (BMI) Body weight Body temperature Oxygen saturation Oxygen saturation in Arterial blood by Pulse oximetry Heart rate Systolic And Diastolic Provider Name and Address Organization Details Last Updated DateTime 5 170.18 cm 22.6 kg/m2 88337.7 5 g 97.9 [degF] 99 % 99 % 81 /min 116/76 mm[Hg] Maryanne Hurt RN [facility] [employer] [facility] 5 15:42:31 Date Recorded Body height Body mass index (BMI) Body weight Body temperature Oxygen saturation Oxygen saturation in Arterial blood by Pulse oximetry Heart rate Systolic And Diastolic Provider Name and Address Organization Details Last Updated DateTime 5 170.18 cm 22.9 kg/m2 49144.2 4 g 97.7 [degF] 99 % 99 % 83 /min 120/70 mm[Hg] Maryanne Hurt RN [place] [facility] 5 15:11:14 Date Recorded Body height Body mass index (BMI) Body weight Heart rate Oxygen saturation Oxygen saturation in Arterial blood by Pulse oximetry Systolic And Diastolic Provider Name and Address Organization Details Last Updated DateTime 5 170.18 cm 22.9 kg/m2 35205.4 9 g 82 /min 99 % 99 % 122/72 mm[Hg] TORREY Rojo [place] [employer] [facility] 5 14:42:24 Social History Question Answer Notes LastModified by [employer]ood Details LastModified Time Tobacco Smoking Status Current Every Day Smoker Maryanne Hurt RN [facility], [place] [employer] [facility] 08/17/2024 17:14:34 What Is Your Level Of Caffeine Consumption? Occasional One 32 Oz. Tea/day [email or web address] Information not available 08/17/2024 Which Illicit Or Recreational Drugs Have You Used? Marijuana [email or web address] Information not available 08/17/2024 How Many Years Have You Used Illicit Or Recreational Drugs? 18 [email or web address] Information not available 08/17/2024 What Is Your Current Pack Years? 10-19packyears [email or web address] Information not available 08/17/2024 At What Age Did You Start Smoking Tobacco? 16 [email or web address] Information not available 08/17/2024 How Much Tobacco Do You Smoke? 0.5 PPD [email or web address] Information not available 08/17/2024 How Many Years Have You Smoked Tobacco? 17 [email or web address] Information not available 08/17/2024 Have You Used IV Drugs? No [email or web address] Information not available 08/17/2024 Sex: Unknown Functional Status Question Answer Note LastModified by [employer] Details LastModified Time Do you use any illicit or recreational drugs? Yes [email or web address] Information not available 08/17/2024 Do you or have you ever used any other forms of tobacco or nicotine? No [email or web address] Information not available 08/17/2024 What is your level of alcohol consumption? Occasional 1 or 2 gin and tonics per week [email or web address] Information not available 08/17/2024 Mental Status None recorded. Family History Relationship Description Onset Age of this Age Resolved Age Notes LastModified by Organization Details LastModified Time Unspecified Relation Malignant tumor of colon 93 Grandp arent unknow n thinki ng Mom's side [email or web address] Not available 11/25/2024 14:41:39 Father Crohn's disease 45 [email or web address] Not available 2024 14:41:39 Father Ulcerative colitis 45 [email or web address] Not available 2024 14:41:39 Father Polyp of colon 42 [email or web address] Not available 2024 14:41:39 Mother Irritable bowel syndrome 65 [email or web address] Not available 2024 14:41:39 Mother Myocardial infarction 40 [email or web address] Not available 07/31 17:09:13 Brother Polyp of colon 33 [email or web address] Not available 2024 14:41:39 Maternal Grandfather Diabetes mellitus 93 [email or web address] Not available 08/17 17:11:01 Maternal Grandfather Pneumonia 30 93 [email or web address] Not available 0 08/17/2024 17:12:01 Medical History No medical history recorded. Immunizations Vaccine Type Date Status Note Provider Nam e and Address Organization Details Recorded Time Tdap 09/07/2024 completed Maryanne Hurt RN [facility], [facility] [employer] [facility] 09/07/2024 17:35:23 Past Encounters Encounter ID Performer Location Encounter Start Date Encounter Closed Date Diagnosis/Indication Diagnosis SNOMED-CT Code Diagnosis ICD10 Code Diagnosis Note [id number] Hayden Hughes MD [address] [address] 08/17/2024 16:36:46 08/18/2024 08:59:57 Hemorrhoids 59792455 K64.9 Rib pain 819832007 R07.8 1 Rt Bronchitis 94573296 J40 Cigarette smoker 9113117 7 F17.495 [id number] Hayden Hughes MD [address] [address] 09/07/2024 16:46:17 09/07/2024 17:21:08 Adult health examination 774322614 Z00.00 Screening for disorder 365388104 Z13.9 Blood-tinged feces 00910 50930 67556 K92.1 Active immunization 3387 9002 Z23 Family his tory of cancer of colon 596468347 Z80.0 [id number] Hayden Hughes MD [place] [id number] 09/30/2024 16:48:10 09/30/2024 17:12:10 Blood-tinged feces 7417670269 06366 K92.1 Family his tory of cancer of colon 914898268 Z80.0 Vitamin D deficiency 347 42049 E55.9 Hemorrhoids 29270858 K64 .9 Cigarette smoker 0228601 7 F17.210 Right lowe r quadrant pain 644968907 R10.31 Gastroesop hageal reflux disease without esophagitis 358787584 K21.9 [id number] Hayden Hughes MD [place] [id number] 10/21/2024 15:31:38 10/21/2024 16:06:55 Vitamin D deficiency 66835522 E55.9 Hemorrhoids 17046087 K64 .9 Blood-tinged feces 17398 69198 31673 K92.1 Family his tory of cancer of colon 524149375 Z80.0 Cigarette smoker 2532784 7 F17.210 Right lowe r quadrant pain 214529889 R10.31 Gastroesop hageal reflux disease without esophagitis 249890937 K21.9 [id number] Hayden Hughes MD [place] [id number] 11/10/2024 14:49:41 11/10/2024 15:24:21 Right lower quadrant pain 460377857 R10.31 Chronic Gastroesop hageal reflux disease without esophagitis 980267028 K21.9 Vitamin D deficiency 347 12628 E55.9 Hemorrhoids 34315329 K64 .9 Blood-tinged feces 23581 87831 97081 K92.1 Family his tory of cancer of colon 305649575 Z80.0 Cigarette smoker 2459447 7 F17.058 [id number] Antonette Foote MD [facility] General Surgery [address] [facility] [place] [address] 11/25/2024 14:41:14 11/25/2024 15:00:19 Lesion of liver 251453298 K76.9 Rectal hemorrhage 497491 02 K62.5 Moderate g astric reflux 271840420 K21.9 Right uppe r quadrant pain 210162043 R10.11 Gastroesop hageal reflux disease without esophagitis 267429372 K21.9 Health Concerns Section Related Observation LastModified by Organization Detai ls LastModified Time None Recorded Concern Status LastModified by Organization Details LastModified Time None Recorded Advance Directives Directive None Recorded Payers Insurance Date Sequence Insurance Name Policy Number Policy Hayes Covered Member ID Hayes Member ID Guarantor Name 12/06/2024 1 [facility] (O) [id number] Carlin Casarez [id number] Carlin Casarez Notes Date Note Type Note Provider Name and Address Organization Details Recorded Time 09/07/2024 text/html Pt is here for his annual exam and f/u on x-ray. Overall, feeling much better than last visit. His ribcage area pain is almost gone. C/o hemorrhoids and blood in stool for last 3 days. Pt has hemorrhoids for last 5 yrs and it flares up couple times a year. At times, he gets constipation. Last BM today morning and its getting better now. FH of colon cancer ++. Smoking about 0.5 ppd ++.PMH, FH and SH reviewed. Hayden Hughes MD [address] [facility] [address], [place], [address], [place] [facility] 09/07/2024 17:20:10 09/30/2024 text/html Pt is here for f/u on his annual labs. Overall, feeling much better than last visit. His ribcage area pain is almost gone. C/o Rt groin area pain for last 2.5 months, on/off. When he goes to sleep, it goes away and by the middle of the day, after lot of walking it comes back. Denies any fever/chills/n/v/d. Pt will be seeing GI after few weeks. Pt has hemorrhoids for last 5 yrs and it flares up couple times a year. At times, he gets constipation. FH of colon cancer ++. Smoking about 0.5 ppd ++. Hayden Hughes MD [address], [place], [address], [facility] 09/30/2024 17:12:48 10/21/2024 text/html Pt is here for f/u on his x-ray, US and pain. Overall, feeling much better than last visit. His ribcage area pain is almost gone. Pt will be getting his US and x-ray next week. Pt did lot of yard work few days ago and his pain completely went away after it. Pt wants to try Chantix. Pt will be seeing GI next month. Pt has hemorrhoids for last 5 yrs and it flares up couple times a year. At times, he gets constipation. FH of colon cancer ++. Smoking about 0.5 ppd ++. FH of IBS ++. Hayden Hughes MD [address], [place], [address], [employer] [facility] 10/21/2024 16:04:35 11/10/2024 text/html Pt is here for f/u on his x-ray, US and pain. Overall, feeling much better than last visit. His ribcage area pain is almost gone. Pt will be seeing GI at [facility] in 2 weeks on 11/25/24. Pt has hemorrhoids for last 5 yrs and it flares up couple times a year. At times, he gets constipation. FH of colon cancer ++. Smoking about 0.5 ppd ++. Doing much better with Chantix and he has cut down on it now. FH of IBS ++. Hayden Hughes MD [address], [place], [address], [facility] 11/10/2024 16:08:55 11/25/2024 text/html patient is seen 1st time in the office patient is here because of rectal bleeding according to him he has problem with the hemorrhoids for a long time but recently in June he started having more rectal bleeding according to him his grandmother had colon cancer denies any previous colonoscopies also according to him ulcerative colitis and Crohn's runs in the family. Patient also complains of some lower abdominal discomfort off and on but it gets better once he has a bowel movement. Also complains of acid reflux according to him he started the pantoprazole and is feeling better denies any dysphagia denies any previous upper endoscopies. Patient did have an ultrasound done in the hospital which showed 8 mm focus in the liver which was concerning for possible hemangioma an MRI was recommended patient has not gone for the MRI yet. Antonette Foote MD [address] [place] [address], [place], [id number], [facility] 11/25/2024 14:58:52
== END 2024-12-26 08:16 | disposition home or self-care (01) ==
PROVIDERS: PCP Family Medicine; Visit Provider Internal Medicine Gastroenterology
DX: K76.9 Liver disease, unspecified (principal)
CPT/HCPCS: 74183; A9577